=== PATIENT | female | born 1960 | race Caucasian/White ===

== ENCOUNTER → 2016-05-28 | Outpatient (CLI) | payer BC ==
[~2016-05-28] MED LIST: ALBUAER19 INH; ASPI81TA28 PO; CLR10 PO; CYCL10TA6 PO; FAMO20TA11 PO; FLUT0.0529 NAE; FLUT1SPR12 NAE; IPRASOL34 INH; LANS30CA12 PO; MELA3TAB12 PO; MISCCAP80 PO; MOME100A INH; [UNRECOGNIZED DRUG - OTHER] PO
--- NOTE | 2016-05-28 13:41 | DIAGNOSTIC IMAGING REPORT ---
CHEST 2 VIEWS ROUTINE CLINICAL HISTORY: Cough. COMPARISON STUDY: Chest radiograph May 14, 2015. FINDINGS: Lung volumes are normal. There is no pneumothorax or pleural effusion. Cardiac size is normal. Mediastinal contours are normal. Minimal lingular opacity favors atelectasis. IMPRESSION: 1. No consolidation identified to suggest pneumonia. 2. Minimal lingular opacity which favors atelectasis. Electronically signed by: Jay Villarreal M.D. 05/28/2016 1:39 PM Dictated Date/Time: 05/28/2016 1:38 PM
== END | disposition home or self-care (01) ==
LOC: C.RAD 13:08
PROVIDERS: ATTEND Family Medicine
DX: J45.901 Unspecified asthma with (acute) exacerbation (principal); J06.9 Acute upper respiratory infection, unspecified

== ENCOUNTER → 2016-11-18 | Day surgery (SDC) | payer BC ==
[2016-09-26 13:35] VITALS: Ht 170.2 cm; Wt 136.4 kg
[~2016-11-18] VITALS: Ht 170.2 cm; Wt 136.4 kg
[~2016-11-18] MED LIST changes: -CYCL10TA6 PO; -FAMO20TA11 PO; -FLUT0.0529 NAE; +LIDOCAINE HCL 2% 2 ML VIAL (20MG/ML) ONE; -MELA3TAB12 PO; +PROPOFOL IV EMULSION 10 MG/ML 20 ML VIAL IV ONE; +SODIUM CHLORIDE 0.9% 500ML 500 ML IV ONE
--- NOTE | 2016-11-18 11:53 | Endo History and Physical ---
History & Physical Date of Service: Nov 18, 2016. Chief Complaint: Yanez's esophagus Referring Physician: Jaye History of Present Illness 56 yo CF who presents for EGD secondary to Yanez's Esophagus. Past Medical History Arthritis, Fractures, Asthma, Gastrointestinal Disorder, Reflux, Sleep Apnea Past Surgical History Hx Cardiac Surgery: No Hx Internal Defibrillator: No Hx Pacemaker: No Hx Abdominal Surgery: Yes (APPY, LAPAROSCOPY, D&C) Hx of Implantable Prosthesis: No Hx Post-Op Nausea and Vomiting: Yes Hx Cancer Surgery: No Hx Thoracic Surgery: No Hx Orthopedic: Yes (BONE SPUR REMOVED LT HEEL, RT ACHILLES TENDON RECONSTRUCTION) Hx Urinary Tract Surgery: No Family History IBD Social History Smoking Status: Never Smoker Hx Substance Use: No Hx Alcohol Use: Yes (RARELY) Allergies Coded Allergies: Sulfa Antibiotics (Verified Allergy, Intermediate, HIVES, 11/18/16) Levalbuterol Hydrochloride (Verified Allergy, Unknown, HIVES, 11/18/16) Current Medications Reported Home Medications Medications Dose Route/Sig Max Daily Dose Days Date Category Flonase Allergy Relief Ch (Fluticasone Propionate (Nasal)) 50 Mcg/Act Spr 1 [place] JONAH DAILY PRN 09/26/16 Reported Probiotic (Probiotic Product) 1 Cap Cap 1 Cap PO BID 09/26/16 Reported Prevacid (Lansoprazole) 30 Mg Capcr 30 Mg PO QAM 09/26/16 Reported Multigen (Fe Asparto Gly-Succin Ac-C-Thr) 1 Tab Tab 1 Tab PO QAM 02/02/15 Reported Dulera 100/5 Mcg (Mometasone Furoate-Formoterol) 1 Aer Aer 2 Puffs INH BID 30 02/02/15 Reported Claritin (Loratadine) 10 Mg Tab 10 Mg PO DAILY PRN 02/02/15 Reported Aspirin Ec (Aspirin) 81 Mg Tab 81 Mg PO QAM 09/25/13 Reported Ventolin Inhaler (Albuterol) Aers 2 Puffs INH Q4H PRN 09/25/13 Reported Duoneb (Albuterol/Ipratropium) Jina 1 Treatment INH Q4H PRN 09/25/13 Reported Vital Signs Weight (Kilograms): 136.36 Height (Feet): 5 Height (Inches): 7 Date Time Temp Pulse Resp B/P (MAP) Pulse Ox O2 Delivery O2 Flow Rate FiO2 6/30/17 11:50 36.7 95 20 109/71 (84) 100 Room Air Physical Exam General Appearance: WD/WN, no apparent distress Respiratory/Chest: Auscultation: breath sounds normal Cardiovascular: Heart Auscultation: RRR Abdomen: Bowel Sounds: normal Inspection & Palpation: soft, non-distended, no tenderness, guarding & rebound Assessment and Plan Assessment: 56 yo CF who presents for EGD secondary to Yanez's Esophagus. Plan: Proceed with colonoscopy.
--- NOTE | 2016-11-18 12:47 | GI REPORT ---
Procedure Date: 11/18/2016 12:32 PM Procedure: Upper GI endoscopy Indications: Dysphagia, Follow-up of Yanez's esophagus Medicines: Monitored Anesthesia Care Complications: No immediate complications. Estimated Blood Loss: Estimated blood loss: none. Procedure: Pre-Anesthesia Assessment: - Prior to the procedure, a History and Physical was performed, and patient medications and allergies were reviewed. The patient's tolerance of previous anesthesia was also reviewed. The risks and benefits of the procedure and the sedation options and risks were discussed with the patient. All questions were answered, and informed consent was obtained. Prior Anticoagulants: The patient has taken aspirin, last dose was 1 day prior to procedure. ASA Grade Assessment: III - A patient with severe systemic disease. After reviewing the risks and benefits, the patient was deemed in satisfactory condition to undergo the procedure. After obtaining informed consent, the endoscope was passed under direct vision. Throughout the procedure, the patient's blood pressure, pulse, and oxygen saturations were monitored continuously. The scope was introduced through the mouth, and advanced to the second part of duodenum. The upper GI endoscopy was accomplished without difficulty. The patient tolerated the procedure well. Findings: There were esophageal mucosal changes consistent with short-segment Yanez's esophagus present at the gastroesophageal junction. The maximum longitudinal extent of these mucosal changes was 1 cm in length. Mucosa was biopsied with a cold forceps for histology. One specimen bottle was sent to pathology. The stomach was normal. The examined duodenum was normal. Impression: - Esophageal mucosal changes consistent with short-segment Yanez's esophagus. Biopsied. - Normal stomach. - Normal examined duodenum. Recommendation: - Resume previous diet. - Continue present medications. - Await pathology results. - Return to primary care physician as previously scheduled. Rl Hernandez, 11/18/2016 12:47:03 PM This report has been signed electronically. Note Initiated On: 11/18/2016 12:32 PM I attest to the content of the Intraoperative Record and orders documented therein, exceptions below
--- NOTE | 2016-11-18 13:16 | Anesthesiology Progress Note ---
Anesthesia Post Op Note Date & Time Nov 18, 2016 at 13:16 Vital Signs Pain Intensity: 0 Vital Signs Past 12 Hours Date Time Temp Pulse Resp B/P (MAP) Pulse Ox O2 Delivery O2 Flow Rate FiO2 11/18/16 13:03 72 20 125/74 (91) 96 Room Air 11/18/16 12:46 77 16 128/88 (101) 96 Room Air 11/18/16 11:50 36.7 95 20 109/71 (84) 100 Room Air Notes Mental Status: alert / awake / arousable, participated in evaluation Pt Amnestic to Procedure: Yes Nausea / Vomiting: adequately controlled Pain: adequately controlled Airway Patency, RR, SpO2: stable & adequate BP & HR: stable & adequate Hydration State: stable & adequate Anesthetic Complications: no major complications apparent
[2016-11-18 13:17] VITALS: BP 124/76; PULSE 73; O2SAT 97
--- NOTE | 2016-11-18 13:29 | Discharge Instructions ---
Endoscopy Patient Instructions Date / Procedure(s) Performed Nov 18, 2016. EGD Allergy Information Coded Allergies: Sulfa Antibiotics (Verified Allergy, Intermediate, HIVES, 11/18/16) Levalbuterol Hydrochloride (Verified Allergy, Unknown, HIVES, 11/18/16) Discharge Date / Findings Nov 18, 2016. Yanez's Esophagus s/p biopsies Medication Instructions Stopped Medication(s): Last aspirin 11/17/16 OK to resume all medications today as prescribed Reported Home Medications Medications Dose Route/Sig Max Daily Dose Days Date Category Flonase Allergy Relief Ch (Fluticasone Propionate (Nasal)) 50 Mcg/Act Spr 1 [place] JONAH DAILY PRN 09/26/16 Reported Probiotic (Probiotic Product) 1 Cap Cap 1 Cap PO BID 09/26/16 Reported Prevacid (Lansoprazole) 30 Mg Capcr 30 Mg PO QAM 09/26/16 Reported Multigen (Fe Asparto Gly-Succin Ac-C-Thr) 1 Tab Tab 1 Tab PO QAM 02/02/15 Reported Dulera 100/5 Mcg (Mometasone Furoate-Formoterol) 1 Aer Aer 2 Puffs INH BID 30 02/02/15 Reported Claritin (Loratadine) 10 Mg Tab 10 Mg PO DAILY PRN 02/02/15 Reported Aspirin Ec (Aspirin) 81 Mg Tab 81 Mg PO QAM 09/25/13 Reported Ventolin Inhaler (Albuterol) Aers 2 Puffs INH Q4H PRN 09/25/13 Reported Duoneb (Albuterol/Ipratropium) Jina 1 Treatment INH Q4H PRN 09/25/13 Reported Provider Instructions Activity Restrictions - No exercising or heavy lifting for 24 hours. - Do not drink alcohol the day of the procedure. - Do not drive a car or operate machinery until the day after the procedure. - Do not make any important decisions or sign important papers in 24 hours after the procedure. Following Day: - Return to full activity which may include returning to work/school. Diet Start your diet with liquids and light foods (jello, soup, juice, toast). Then eat your usual diet if not nauseated. Treatment For Common After Affects For mild abdominal pain, bloating, or excessive gas: - Rest - Eat lightly - Lie on right side Follow-Up Information Follow-up with Jaye as scheduled Anesthesia Information What You Should Know You have had a procedure that required some medicine to reduce anxiety and discomfort. This treatment is called moderate sedation. After receiving the treatment, you may be sleepy, but you will be able to breathe on your own. The effects of the treatment may last for several hours. Follow these instructions along with Activity/Diet recommendations noted above: * Do NOT do anything where dizziness or clumsiness would be dangerous. * Rest quietly at home today, then you can be up and about tomorrow. * Have a responsible person stay with you the rest of today. * You may have had an I.V. today. If so, you may take the dressing off later today. Recommendations Call your doctor if: * Trouble breathing * Continuous vomiting for more than 24 hours * Temperature above 101 degrees * Severe abdominal pain or bloating * Pain not relieved by pain medicine ordered * There is increased drainage or redness from any incision * A large amount of rectal bleeding greater than 2-3 tablespoons. (If you had a polyp/s removed or have hemorrhoids, a small amount of blood - from the rectum is to be expected.) * You have any unanswered questions or concerns. IN THE EVENT OF A SERIOUS EMERGENCY, GO TO THE NEAREST EMERGENCY ROOM Your discharge instructions were prepared by provider Rl Hernandez. Patient Instructions Signature Page Gayla Kahn Patient (or Guardian) Signature/Date: I have read and understand the instructions given to me by my caregivers. Caregiver/RN/Doctor Signature/Date: The above-named patient and/or guardian has received patient instructions on this date. + Original Patient Signature Page (only) stays with chart. Please make copy for patient.
== END | disposition home or self-care (01) ==
LOC: C.GI 11:21
PROVIDERS: ATTEND Internal Medicine
DX: K22.70 Barrett's esophagus without dysplasia (principal); K21.9 Gastro-esophageal reflux disease without esophagitis; G47.30 Sleep apnea, unspecified; J45.909 Unspecified asthma, uncomplicated; Z83.79 Family history of other diseases of the digestive system; Z79.82 Long term (current) use of aspirin; Z79.899 Other long term (current) drug therapy